=== PATIENT | male | born 1965 | race Caucasian/White ===

== ENCOUNTER 2019-08-15 12:26 | Inpatient (IN) | payer MEDICARE, OTHER ==
[~2019-08-15] VITALS: Ht 193 cm; Wt 102.1 kg
[2019-08-15 13:10] LABS: BASOPHILS ABSOLUTE AUTO 0.06 K/mm3 (0.00-0.23); BASOPHILS PERCENT AUTO 1 % (0-2); EOSINOPHILS ABSOLUTE AUTO 0.16 K/mm3 (0.00-0.68); EOSINOPHILS PERCENT AUTO 2 % (0-6); Hematocrit 50.1 % (37.0-53.0); Hemoglobin 16.6 g/dL (13.5-17.5); IMMATURE GRAN ABSOLUTE AUTO 0.02 K/mm3 (0.00-0.10); IMMATURE GRAN PERCENT AUTO 0 % (0-1); LYMPHOCYTES ABSOLUTE AUTO 1.85 K/mm3 (0.84-5.20); LYMPHOCYTES PERCENT AUTO 23 % (21-46); MONOCYTES ABSOLUTE AUTO 0.71 K/mm3 (0.16-1.47); MONOCYTES PERCENT AUTO 9 % (4-13); Mean Corpuscular HGB 30.8 pg (26.0-34.0); Mean Corpuscular HGB Conc 33.1 g/dL (31.5-36.5); Mean Corpuscular Volume 93 fL (80-100); Mean Platelet Volume 11.3 fL (9.1-12.4); NEUTROPHILS ABSOLUTE AUTO 5.16 K/mm3 (1.96-9.15); NEUTROPHILS PERCENT AUTO 65 % (41-73); Platelet Count 223 K/mm3 (150-400); RDW Coefficient Variation 12.8 % (11.7-14.2); RDW Standard Deviation 43.8 fL (35.1-46.3); Red Blood Cell Count 5.39 M/mm3 (4.30-5.90); White Blood Cell Count 7.96 K/mm3 (4.00-11.30)
[2019-08-15 13:29] LABS: Alanine Aminotransfer (ALT/SGP 33 U/L (12-78); Albumin, Blood 3.5 g/dL (3.4-5.0); Albumin/Globulin Ratio 0.8 (0.8-1.8); Alk Phos 76 U/L (50-136); Anion Gap 6 mmol/L (6-16); Aspartate Aminotrans (AST/SGOT 30 U/L (12-37); Bilirubin, Total 0.6 mg/dL (0.1-1.0); Blood Urea Nitrogen 18 mg/dL (8-24); Bun/Creatinine Ratio 23.4 (12.0-20.0); CO2, Blood 28 mmol/L (21-32); Calcium, Blood 9.5 mg/dL (8.5-10.1); Chloride, Blood 103 mmol/L (98-108); Creatinine, Blood 0.77 mg/dL (0.60-1.20); Globulin, Blood 4.5 g/dL (2.2-4.0); Glomerular Filtration Rate >60 (60-); Glucose, Blood 111 mg/dL (70-99); Potassium, Blood 4.2 mmol/L (3.5-5.5); Sodium, Blood 137 mmol/L (136-145); Troponin I <0.015 ng/mL (0.000-0.040)
[2019-08-15] MEDS ORDERED: Prinivil10 MG PO (13:51)
[2019-08-15] MEDS ORDERED: METO50 PO (13:51)
[2019-08-15] MEDS ORDERED: Aspir 8181 MG PO (13:52)
[2019-08-15] MEDS ORDERED: ALBU90OI INH (13:52)
--- NOTE | 2019-08-15 18:15 | NUR ---
SHIFT SUMMARY 1624 PT RECEIVED FROM ER. PT TRANSFERED FROM STRETCHER TO BED WITH STANDBY ASSIST. ALERT AND ORIENTED X3. VSS. C/O 9/10 CHEST PAIN, MEDICATED WITH PRN PAIN MEDS, SEE EMAR. PAIN DECREASED TO 6/10 CHEST PAIN AFTER MEDS. LUNG SOUNDS CLEAR, NSR WITH BIGEMINAL PVCs. RIGHT BKA WITH PROSTHESIS. VENOUS ULCER NOTED TO LEFT MEDIAL ANKLE, PICTURE TAKEN, DRSG APPLIED TO LEFT ANKLE AFTER PICTURE AND WOUND CULTURE TAKEN. WILL CONTINUE TO MONITOR AND REPORT OFF TO CLERICAL ASSOCIATE RN.
[2019-08-16 01:17] LABS: BASOPHILS ABSOLUTE AUTO 0.06 K/mm3 (0.00-0.23); BASOPHILS PERCENT AUTO 1 % (0-2); EOSINOPHILS ABSOLUTE AUTO 0.14 K/mm3 (0.00-0.68); EOSINOPHILS PERCENT AUTO 2 % (0-6); Hematocrit 48.1 % (37.0-53.0); Hemoglobin 15.4 g/dL (13.5-17.5); IMMATURE GRAN ABSOLUTE AUTO 0.02 K/mm3 (0.00-0.10); IMMATURE GRAN PERCENT AUTO 0 % (0-1); LYMPHOCYTES ABSOLUTE AUTO 2.58 K/mm3 (0.84-5.20); LYMPHOCYTES PERCENT AUTO 34 % (21-46); MONOCYTES PERCENT AUTO 8 % (4-13); Mean Platelet Volume 11.2 fL (9.1-12.4); NEUTROPHILS ABSOLUTE AUTO 4.11 K/mm3 (1.96-9.15); NEUTROPHILS PERCENT AUTO 55 % (41-73); Platelet Count 194 K/mm3 (150-400); RDW Coefficient Variation 12.9 % (11.7-14.2); RDW Standard Deviation 46.1 fL (35.1-46.3); Red Blood Cell Count 4.96 M/mm3 (4.30-5.90); White Blood Cell Count 7.51 K/mm3 (4.00-11.30)
[2019-08-16 01:19] LABS: Mean Corpuscular Volume 97 fL (80-100)
[2019-08-16 01:33] LABS: Anion Gap 4 mmol/L (6-16); Blood Urea Nitrogen 20 mg/dL (8-24); Bun/Creatinine Ratio 24.2 (12.0-20.0); CHOL/HDL RATIO 6.1; CO2, Blood 29 mmol/L (21-32); Calcium, Blood 8.4 mg/dL (8.5-10.1); Chloride, Blood 106 mmol/L (98-108); Cholesterol 239 mg/dL (50-200); Creatinine, Blood 0.83 mg/dL (0.60-1.20); Glomerular Filtration Rate >60 (60-); Glucose, Blood 110 mg/dL (70-99); HDL Cholesterol 39 mg/dL (>39); LDL/HDL RATIO 4.1; Low Density Lipoprotein Chol 161 mg/dL (0-110); Potassium, Blood 4.1 mmol/L (3.5-5.5); Sodium, Blood 139 mmol/L (136-145); Triglycerides 197 mg/dL (30-160); Very Low Density Lipoprot Chol 39 mg/dL (6-32)
[2019-08-16 01:39] LABS: International Normalized Ratio 1.03; Prothrombin Time Results 10.9 Sec (9.7-11.5)
--- NOTE | 2019-08-16 06:04 | NUR ---
SHIFT SUMMARY PT SLEEPING IN ROOM COMFORTABLY AT THIS TIME. NO ACUTE CHANGES T/O NIGHT. PT DID HAVE ONE EPISODE OF CHEST PAIN THAT WAS MEDICATED PER EMAR, AND RESOLVED. PT ALSO HAD ONE EPISODE OF ANXIETY DURING NIGHT. REPORTED WOKE UP AND FELT SWEATY AND "VERY CONCERNED" ABOUT WHAT WAS GOING TO HAPPEN IN THE MORNING. PT WAS EDCUATED ABOUT PLAN TO WATCH TROPONIN LEVELS T/O NIGHT, AND TO POSSIBLY HAVE CARDIO CONSULT IN AM IF TROPS WERE POSITIVE. PT WAS REMINDED THAT HE WAS ALSO ON CARDIAC MONITORING AND THAT HIS STATUS WAS VERY STABLE AT THIS TIME. PT REPORTS FEELING MORE AT EASE, REQUESTED MEDS FOR ANXIETY, PROVIDER CALLED AND PT MEDICATED PER EMAR. RESP EVEN UNLABORED ON RA W/ SATS >92%. PT ABLE TO AMBULATE SBA TO RR WITH PROSTETIC IN PLACE. DENIED ANY SOB T/O NIGHT. NO CHANGES IN CARDIAC RHYTHM T/O NIGHT. NS INFUSING IN PIV. CALL LIGHT IN REACH.
--- NOTE | 2019-08-16 07:43 | NUR ---
pt laying in bed awake a/ox3, pleasant and cooperative with care, follows commands well, reports chest pain this am of 03/04, is worse with cough, but states it's a different kind of pain with coughing, the mid chest pain feels like pressure, gave 2mg morphine with good relief, down to 10/04, lungs are course t/o, resp even and unlabored, has a harsh productive cough of yellow sputum is currently on r/a, hrr, tele in place running sr with pvc's, ekg was done, shows this same, no edema noted, ppp+1, cap refill <3sec, vs stable, iv site is clear and patent, infusing ns as ordered, has a r bka, iv to rfa site is clear and patent, btx4, abd flat soft nontender, voids without diff, skin has wound to l ankle, dressing in place, willis martinez, call light in reach. will do a stress test this afternoon, may have breakfast, then npo. had a ntg patch in place, this was removed.
--- NOTE | 2019-08-16 12:08 | NUR ---
hannah king, pt reports a low grade chest discomfort, otherwise doing well, planning on stress test today. keeping npo for that. call light in reach.
--- NOTE | 2019-08-16 12:31 | NUR ---
pt having pain at 4/10 became diaphoretic, and not feeling good, vs ok, gave 2mg morphine for pain he reports pain is gone now, nuc med here to inject him. call light in reach.
--- NOTE | 2019-08-16 14:15 | NUR ---
pt left for labor relations or personnel negotiator via bed.
--- NOTE | 2019-08-16 16:56 | NUR ---
pt returned to room after angio, site to right wrist is clear with arm board in place, groin site is soft, no sign of bleeding, pt is moving a lot, have had to remind him multiple times to hold still and not lift head, or turn himself in bed. vs stable. call light in reach.
--- NOTE | 2019-08-16 18:01 | NUR ---
pt doing ok, continues to move, needs frequent reminding. has dinner in front of him at this time, continue to obtain v.s. and monitor sites. no further changes, call light in reach.
--- NOTE | 2019-08-16 18:35 | NUR ---
pt back hurting so could not hold still, gave him 2mg morphine with good relief, he agreed he could relax and hold still now. no further changes this shift. call light in reach.
--- NOTE | 2019-08-16 19:15 | NUR ---
CARE ASSUMPTION PT A&O X4. VSS. PT FOUND LYING ON R SIDE W/ BILAT LEGS BENT AT THE KNEES. PT REMINDED TO KEEP R LEG FLAT PER MD ORDERS FOR 4 HOURS POST PROCEDURE. UPON REMOVAL OF ARM BOARD TO R WRIST FOR RADIAL ACCCESS SITE ASSESSMENT, PT BENDING R WRIST STATING "IT'S ALL HEALED." PT REMINDED TO KEEP R WRIST STRAIGHT AND AVOID BENDING. ARM BOARD REAPPLIED. R GROIN SITE AND R RADIAL SITE WNL, W/ NO BLEEDING & NO HEMATOMA. PT DENIES CP BUT REPORTS BACK PAIN "FROM LAYING IN BED." WILL CONTINUE TO MONITOR AND PROVIDE CARE.
--- NOTE | 2019-08-16 23:38 | NUR ---
CHEST PRESSURE PT CALL TO NURSE W/ REPORT OF "CHEST PRESSURE FOR 20 MINUTES THAT FEELS LIKE SOMEONE IS SITTING ON MY CHEST." PT ALSO REPORTS ANXIETY AND LIGHTHEADEDNESS. NO CHANGES ON TELEMETRY. VSS. PT MEDICATED W/ MORPHINE W/ PAIN REDUCTION FROM 05/04 TO 10/04. PT NOW DENYING LIGHTHEADEDNESS STATING "I THINK IT WAS JUST ANXIETY." WILL CONTINUE TO MONITOR AND PROVIDE CARE.
[2019-08-17 04:24] LABS: BASOPHILS ABSOLUTE AUTO 0.04 K/mm3 (0.00-0.23); BASOPHILS PERCENT AUTO 1 % (0-2); EOSINOPHILS PERCENT AUTO 2 % (0-6); Hematocrit 45.2 % (37.0-53.0); Hemoglobin 14.9 g/dL (13.5-17.5); IMMATURE GRAN ABSOLUTE AUTO 0.01 K/mm3 (0.00-0.10); IMMATURE GRAN PERCENT AUTO 0 % (0-1); LYMPHOCYTES ABSOLUTE AUTO 1.59 K/mm3 (0.84-5.20); LYMPHOCYTES PERCENT AUTO 25 % (21-46); MONOCYTES PERCENT AUTO 8 % (4-13); Mean Corpuscular HGB 31.3 pg (26.0-34.0); Mean Corpuscular Volume 95 fL (80-100); Mean Platelet Volume 11.3 fL (9.1-12.4); NEUTROPHILS ABSOLUTE AUTO 4.25 K/mm3 (1.96-9.15); NEUTROPHILS PERCENT AUTO 66 % (41-73); Platelet Count 152 K/mm3 (150-400); RDW Coefficient Variation 12.6 % (11.7-14.2); RDW Standard Deviation 44.8 fL (35.1-46.3); Red Blood Cell Count 4.76 M/mm3 (4.30-5.90); White Blood Cell Count 6.49 K/mm3 (4.00-11.30)
--- NOTE | 2019-08-17 04:33 | NUR ---
2ND EPISODE OF CHEST PRESSURE PT C/O 7/10 CHEST PRESSURE, STATING THE PAIN TO BE "JUST LIKE BEFORE" ONLY THIS TIME PT ADDS HE FELT "CLAMMY." PT NOT CLAMMY AT TIME OF ASSESSMENT, BUT PT STATES "I WAS EARLIER." VSS. NO CHANGES ON TELEMETRY. PT MEDICATED W/ MORPHINE W/ COMPLETE RELIEF OF PAIN W/ PT STATING "OH YEAH, IT'S GONE. THAT TOOK AWAY MY BACK PAIN AWAY AND EVERYTHING." WILL CONTINUE TO MONITOR AND PROVIDE CARE.
[2019-08-17 04:38] LABS: Anion Gap 5 mmol/L (6-16); Blood Urea Nitrogen 12 mg/dL (8-24); Bun/Creatinine Ratio 18.6 (12.0-20.0); CO2, Blood 26 mmol/L (21-32); Calcium, Blood 8.1 mg/dL (8.5-10.1); Chloride, Blood 109 mmol/L (98-108); Creatinine, Blood 0.65 mg/dL (0.60-1.20); Glomerular Filtration Rate >60 (60-); Glucose, Blood 106 mg/dL (70-99); Potassium, Blood 3.8 mmol/L (3.5-5.5); Sodium, Blood 140 mmol/L (136-145)
--- NOTE | 2019-08-17 05:04 | NUR ---
SHIFT SUMMARY PT A&O X4. VSS. MONITOR SHOWS SB-SR W/ PVC's, HR 50s-70s. LUNG SOUNDS CLEAR, SPO2 > 92% ON RA. PT C/O "CHEST PRESSURE" X2 THIS SHIFT RATING PAIN 7-8/10, COMPLETELY RELIEVED W/ PRN IV MORPHINE PER ORDERS, SEE PREVIOUS NOTES. NO TELEMETRY CHANGES NOTED DURING EVENTS. R RADIAL ACCESS SITE RECOVERY WNL, TR BAND DEFLATED AND REMOVED W/ OPSITE DRESSING APPLIED AND ARM BOARD IN PLACE. R GROIN SITE WNL W/ NO BLEEDING & NO HEMATOMA. WILL CONTINUE TO MONITOR AND PROVIDE CARE UNTIL REPORT OFF TO DAY SHIFT RN.
--- NOTE | 2019-08-17 07:34 | NUR ---
pt laying in bed awake a/ox3, pleasant and cooperative with care, reports he feels light headed this am, but pain is ok in chest and back, vs stable, afebrile, he reports he feels it's anxiety, spoke with him about how he handles it at home, calmed down by the time I left room and reports feeling better, lungs are a bit course in bases, not as course as yesterday, sats are 98% on r/a, resp even and unlabored, no cough noted this am, hrr, tele in place running sr with pvc's per moniotor, see strip, no edema noted, ppp+1, to left le, rbka, iv site is clear and patent, btx4, abd flat soft nontender, voids via urinal without diff, urine is clear marina, skin has wound to left ankle, dressing in place, c/d/i, willis martinez, call light in reach.
--- NOTE | 2019-08-17 11:42 | NUR ---
pt will be going for a cta soon, resting in bed, no complaints or needs at this time, call light in reach.
--- NOTE | 2019-08-17 14:17 | NUR ---
CALLED DR LLANOS. N/S CHANGE TO TKO NEED
--- NOTE | 2019-08-17 15:56 | NUR ---
1530 PT C/O CHEST PAIN, 6/10. NO CHANGES IN TELE. BP 138/93 P 62 GAVE 2MG IV MORPHINE. PAIN DROPPED TO 0. CALLED DR LLANOS. ORDERS TO GIVE NITRO ALSO AND STAT EKG. DONE. DR ADVISED THE CT RESULTS AVAIL. 1555 NITRO GIVEN. PT STATES CHEST PAIN JUST PRIOR WAS 3/10. SHORTLY DROPPED TO 0/10, HAS H/A NOW. SOME LIGHT HEADEDNESS. ADVISED NOT TO GET UP WITHOUT ASSIST
--- NOTE | 2019-08-17 16:14 | NUR ---
CALLED REPORT TO DR VALERIOTRATE RE CHKEST PAIN. AND EKG. ORDERS FOR NITRO PATCH START NOW
--- NOTE | 2019-08-17 17:33 | NUR ---
PT PLEASANT THIS AFT. HAD EPISODE OF CHEST PAIN THIS AFT. NOTIFIED. ORDERS GIVEN. EKG TAKEN. NITRO PATCH ADMIN PER NEW ORDERS. PT STATES PAIN MOSTLY GONE. NO OTHER CONCERNS AT THIS TIME. HE HAS BEEN VISITING ON PHONE MOST OF AFT AND ADRIENNE . BED IN LOW POSITION, CALL LITE IN REACH, CALLS APPROP
--- NOTE | 2019-08-17 19:21 | NUR ---
CARE ASSUMPTION PT A&O X4. VSS. PT REPORTS 3/10 CHEST PRESSURE AT THIS TIME, STATING "IT'S LIKE A SMALL INFANT SITTING ON MY CHEST, NOT A BIG FAT PERSON." PT W/ NITRO PATCH ON. MONITOR SHOWS SR W/ PVC's, HR 70's. WILL CONTINUE TO MONITOR AND PROVIDE CARE.
--- NOTE | 2019-08-18 06:00 | NUR ---
SHIFT SUMMARY PT A&O X4. VSS. PT W/ MILD CHEST PRESSURE UPON CARE ASSUMPTION WEARING NITRO PATCH. PT STARTED ON NEW MEDICATION RANEXA FOR CP THIS SHIFT W/ PT REPORT OF "WOW, THAT REALLY WORKED!" PT DENIES FURTHER CP THIS SHIFT POST RANEXA ADMINISTRATION. WOUND CARE FOR L ANKLE WOUND DONE THIS SHIFT. R RADIAL & R GROIN ACCESS SITES WNL. PT SLEEPING MAJORITY OF SHIFT STATING "THIS IS THE BEST I'VE SLEPT IN QUITE AWHILE." WILL CONTINUE TO MONITOR AND PROVIDE CARE UNTIL REPORT OFF TO DAY SHIFT RN.
--- NOTE | 2019-08-18 08:42 | NUR ---
MORNING NOTE ASSUMED CARE OF PT AT 0700, PT AWAKE AND ALERT IN BED IN NO APPARENT DISTRESS. ALL VSS AND W/IN NORMAL LIMITS, NO PAIN, NO ISSUES. MEDICATED PER EMAR, WILL CONTINUE TO MONITOR. BED LOCKED AND LOW, CALL LIGHT W/IN REACH, PT INDEPENDENT IN ROOM
[2019-08-18] MEDS ORDERED: ACET325 PO (11:46)
[2019-08-18] MEDS ORDERED: ATOR80 PO (11:49)
[2019-08-18] MEDS ORDERED: COREG6.25 MG PO (11:52)
[2019-08-18] MEDS ORDERED: Isosorbide Mono30 MG PO (11:53)
[2019-08-18] MEDS ORDERED: NITR.4SL SL (11:56)
[2019-08-18] MEDS ORDERED: ONDA4ODT MM (11:59)
[2019-08-18] MEDS ORDERED: RANOLAZINE ER500 M2 (12:00)
[2019-08-18] MEDS ORDERED: RANO500T PO (12:01)
--- NOTE | 2019-08-18 13:40 | NUR ---
PATIENT DISCHARGE DISCHARGE ORDERS RECEIVED, PATIENT VERBALIZED UNDERSTANDING OF ALL DISCHARGE INSTRUCTIONS INCLUDING MEDICATIONS AND FOLLOWUP APPOINTMENTS. PATIENT'S IV WAS DC'D WITHIN NORMAL LIMITS, COVERED WITH GAUZE AND COBAN - NO BLEEDING, NO REDNESS, NO SORENESS. PT'S GROIN AND RADIAL SITES ARE COVERED WITH TEGADERM DRESSING, DRY AND INTACT; PATIENT INSTRUCTED TO LEAVE DRESSINGS ON FOR ONE MORE DAY. PATIENT EXPECTING TO FOLLOW UP WITH [facility] TOMORROW TO APPLY FOR INSURANCE AND CHOOSE A PCP, AND TO VISIT THE [facility] WELL. PATIENT LEFT UNIT WITH ALL HIS BELONGINGS, ESCORTED ON FOOT BY SENIOR [employer] CONSULTANT TO MAIN ENTRANCE. NO QUESTIONS, NO ISSUES.
== END 2019-08-18 13:32 | disposition home or self-care (01) | DRG 287 ==
LOC: ER 12:26 → PCU 12:27
PROVIDERS: Nurse Practitioner Acute Care; Physician Assistant; ADMIT Family Medicine
PROC: 3E02340 Introduction of Influenza Vaccine into Muscle, Percutaneous Approach (ICD-10-PCS; 2019-08-15)
PROC: B2111ZZ Fluoroscopy of Multiple Coronary Arteries using Low Osmolar Contrast (ICD-10-PCS; principal; 2019-08-16)
PROC: B2181ZZ Fluoroscopy of Left Internal Mammary Bypass Graft using Low Osmolar Contrast (ICD-10-PCS; 2019-08-16)
PROC: B2121ZZ Fluoroscopy of Single Coronary Artery Bypass Graft using Low Osmolar Contrast (ICD-10-PCS; 2019-08-16)
PROC: B3101ZZ Fluoroscopy of Thoracic Aorta using Low Osmolar Contrast (ICD-10-PCS; 2019-08-16)
DX: I25.110 Atherosclerotic heart disease of native coronary artery with unstable angina pectoris (principal); T82.855A Stenosis of coronary artery stent, initial encounter; Z95.1 Presence of aortocoronary bypass graft; I25.2 Old myocardial infarction; E11.51 Type 2 diabetes mellitus with diabetic peripheral angiopathy without gangrene; E78.5 Hyperlipidemia, unspecified; Z89.511 Acquired absence of right leg below knee; Z23 Encounter for immunization; Z79.82 Long term (current) use of aspirin; I08.1 Rheumatic disorders of both mitral and tricuspid valves; I27.20 Pulmonary hypertension, unspecified; J44.9 Chronic obstructive pulmonary disease, unspecified; I10 Essential (primary) hypertension; Z87.891 Personal history of nicotine dependence
CPT/HCPCS: 36415; 71046; 71275; 76937; 80048; 80053; 80061; 83735; 83880; 84484; 85025; 85347; 85610; 87070; 87081; 90686; 93005; 93010; 93306; 93455; 94640; 94760; 96361; 96372; 96374; 96375; 96376; 99152; 99153; 99285-25; A9270; C1769; C1894; G0008; G0378; J1644; J1650; J2060; J2250; J2270; J3010; J7030; Q0163; Q9967

== ENCOUNTER 2019-12-02 00:20 | Day surgery (SDC) | payer MEDICARE, OTHER ==
[~2019-12-02 00:20] MED LIST: ACET325 PO; ALBU90OI INH; ATOR80 PO; Aspir 8181 MG PO; COREG6.25 MG PO; Isosorbide Mono30 MG PO; METO50 PO; NITR.4SL SL; ONDA4ODT MM; Prinivil10 MG PO; RANO500T PO; RANOLAZINE ER500 M2
== END 2019-12-02 12:00 | disposition home or self-care (01) ==
LOC: WOUND 00:20
DX: E11.622 Type 2 diabetes mellitus with other skin ulcer (principal); E11.59 Type 2 diabetes mellitus with other circulatory complications; L97.822 Non-pressure chronic ulcer of other part of left lower leg with fat layer exposed; I83.12 Varicose veins of left lower extremity with inflammation; J44.9 Chronic obstructive pulmonary disease, unspecified; I10 Essential (primary) hypertension; F17.210 Nicotine dependence, cigarettes, uncomplicated; Z79.899 Other long term (current) drug therapy; Z79.82 Long term (current) use of aspirin
CPT/HCPCS: G0463

== ENCOUNTER 2019-12-12 00:50 | Day surgery (SDC) | payer MEDICARE | END 2019-12-12 22:42 | disposition home or self-care (01) | LOC: WOUND 00:50 | DX: E11.622 Type 2 diabetes mellitus with other skin ulcer (principal); E11.59 Type 2 diabetes mellitus with other circulatory complications; L97.822 Non-pressure chronic ulcer of other part of left lower leg with fat layer exposed; I83.12 Varicose veins of left lower extremity with inflammation; Z79.82 Long term (current) use of aspirin; Z79.899 Other long term (current) drug therapy | CPT/HCPCS: G0463 ==

== ENCOUNTER 2020-02-07 00:15 | Day surgery (SDC) | payer MEDICARE | END 2020-02-07 23:07 | disposition home or self-care (01) | LOC: WOUND 00:15 | DX: E11.622 Type 2 diabetes mellitus with other skin ulcer (principal); L97.822 Non-pressure chronic ulcer of other part of left lower leg with fat layer exposed; E11.59 Type 2 diabetes mellitus with other circulatory complications; I83.022 Varicose veins of left lower extremity with ulcer of calf; J44.9 Chronic obstructive pulmonary disease, unspecified; I10 Essential (primary) hypertension; Z87.891 Personal history of nicotine dependence; Z79.899 Other long term (current) drug therapy; Z79.82 Long term (current) use of aspirin | CPT/HCPCS: 87070; 87081; G0463 ==

== ENCOUNTER 2020-02-14 00:25 | Day surgery (SDC) | payer MEDICARE | END 2020-02-14 23:07 | disposition home or self-care (01) | LOC: WOUND 00:25 | DX: E11.622 Type 2 diabetes mellitus with other skin ulcer (principal); L97.822 Non-pressure chronic ulcer of other part of left lower leg with fat layer exposed; E11.59 Type 2 diabetes mellitus with other circulatory complications; I83.022 Varicose veins of left lower extremity with ulcer of calf; J44.9 Chronic obstructive pulmonary disease, unspecified; F17.200 Nicotine dependence, unspecified, uncomplicated; I10 Essential (primary) hypertension; Z79.899 Other long term (current) drug therapy; Z79.82 Long term (current) use of aspirin ==